=== PATIENT | male | born 1950 | race Two or more races ===

== ENCOUNTER 2019-01-04 12:47 | Emergency (ER) | payer OTHER, MEDICAID ==
[~2019-01-04] VITALS: Ht 170.2 cm; Wt 80.7 kg
[2019-01-04 13:14] VITALS: Ht 170.2 cm; Wt 80.7 kg
[2019-01-04 14:32] VITALS: BP 130/82
== END 2019-01-04 14:32 | disposition home or self-care (01) ==
LOC: ED 12:47
DX: H11.31 Conjunctival hemorrhage, right eye (principal); S05.01XA Injury of conjunctiva and corneal abrasion without foreign body, right eye, initial encounter; E11.9 Type 2 diabetes mellitus without complications; X58.XXXA Exposure to other specified factors, initial encounter; Y93.89 Activity, other specified; Y92.89 Other specified places as the place of occurrence of the external cause; Y99.8 Other external cause status
CPT/HCPCS: J7030